=== PATIENT | male | born 1955 | race Caucasian/White ===

== ENCOUNTER 2018-10-20 03:58 | Emergency (ER) | payer OTHER ==
[2018-10-20] MEDS ORDERED: ASPIRIN 81 MG CHEW TAB PO ONE (04:06)
[2018-10-20] MEDS ORDERED: MAG HYDROX/ALUMINUM HYD/SIMETH 30 ML UDC PO ONE (04:07)
[2018-10-20] MEDS ORDERED: LIDOCAINE HCL 2% VISC. ORAL 300MG/15ML UDC PO ONE (04:07)
--- NOTE | 2018-10-20 04:10 | ED Physician Documentation ---
Chest Pain - HISTORIAN Historian: patient - HPI Stated Complaint: chest pain Chief Complaint: Chest Pain Additional Information: Patient, with a past medical history of CAD (s/p CABG 2014), PAD (s/p stents in both legs), DM2, smoking, and COPD/Empysema, presented to ED with a 36 hour history of epigastric pain/pressure. Patient state he had similar symptoms about 2 weeks ago and was seen by Dr. Becker. He was told it was indigestion and told to take over the counter Prilosec and Miralax. He took it for 7 days and stopped because that is what the directions on the box said. His symptoms returned yesterday, worsening overnight so he came to the ED. He states his belly feels bloated, causing pressure in his chest. He states this does not feel like any of the heart attacks he has had in the past. His last follow up with [facility] was July 2015. He has not been taking Lasix or Spironolactone. Current meds include Metoprolol and Lipitor. Onset: hours (36) Timing: gradual onset Duration: gradual Last known Well Date: 10/19/18 Last Known Well Time: 06:00 Context: sleep Severity: mild Quality: pressure (2/10) Chest Pain Radiation: no radiation Chest Pain Signs/Symptoms: denies: nausea, vomiting Worsened By: nothing Relieved By: sitting up - ROS CONST: none MS/LYMPH: none GI/: other (abdominal distention) EYES/ENT: none SKIN/ENDO: none NEURO/PSYCH: none - PAST HX MA risk factors: diabetes Type 2, cardiac disease DVT/PE Risk Factors: denies: leg swelling TAD/AAA risk factors: none Neuro deficit: none GI disease: none Lung disease: COPD Surgeries/Procedures: cardiac bypass, other (stents in both legs) Allergies/Adverse Reactions: Allergies Allergy/AdvReac Type Severity Reaction Status Date / Time No Known Drug Allergies Allergy Verified 10/20/18 04:39 Home Medications: Ambulatory Orders Medication Instructions Recorded Aspirin 162 mg PO DAILY u2 12/11/14 Metformin HCl [Glucophage] 1,000 mg PO HS u2 06/25/15 Atorvastatin Calcium [Lipitor] 80 mg PO HS u2 08/12/15 Furosemide [Lasix] 20 mg PO DAILY #30 tablet 10/20/18 Pantoprazole Sodium [Protonix] 40 mg PO DAILY #30 tablet. 10/20/18 Spironolactone 25 mg PO DAILY #30 tablet 10/20/18 - SOCIAL HX Smoking History: cigarettes, greater than 1 pack/day Alcohol Use: none Drug Use: none - FAMILY HX Family HX: none - REVIEWED ASSESSMENTS Nursing Assessment Reviewed: Yes Vitals Reviewed: Yes Progress - Progress Progress: 0409 CXR shows some heart failure will give Lasix 0502 Patient states his chest pressure has resolved after GI cocktail. He now complains of abdominal distention and constipation [address] results with patient. He would like to see Dr. Nielsen for following up. - EKG/XRAY/CT Comments: sinus ryythm with occasional PVCs. Inferior/Anterolateral infarct age unde ED Results Lab/Radiology - Radiology Radiology Impressions: Portable chest History: Chest pain and pressure Findings: Pulmonary vascular congestion, cardiomegaly, mild pulmonary edema, small left pleural effusion, and median sternotomy are observed. There is no pneumothorax. The lungs are well expanded. Impression: 1. Mild congestive heart failure. 2. Sternotomy. Electronically signed on Oct 20, 2018 4:22:23 AM [facility] by: Chucky Shah Computed tomography abdomen pelvis without contrast History: Abdominal pain and distention Findings: Transverse abdomen and pelvis sections are obtained without contrast. Priors have not been provided. An old nonunited right rib fracture, sternotomy, coronary artery calcification and/or stents, small bilateral pleural effusions, and mild bibasilar atelectasis or pulmonary edema are observed. Abdomen sections reveal massive retroperitoneal lymphadenopathy surrounding the inferior vena cava and abdominal aorta with extension into/along the root of the mesentery, pancreatic body and tail, adrenals, left kidney, and gastrosplenic ligament. This is contiguous with the stomach. Collateral mesenteric veins are present. The gallbladder is partially contracted. The spleen, liver, and right kidney are unremarkable. Extensive left perinephric stranding is observed. Bowel loops exhibit normal caliber and wall thickness. Fluid is present in the right rectus sheath. Right rectus muscle atrophy is present. Mesenteric and omental edema is observed. Atherosclerotic disease and a 3.5 cm infrarenal aortic aneurysm are observed. A small umbilical hernia contains omentum. Pelvic sections reveal unremarkable prostate, seminal vesicles, and urinary bladder. Pelvic bowel loops are within normal limits. The appendix is not identified. Atherosclerotic calcifications are observed. Impression: 1. Massive retroperitoneal lymphadenopathy as described. Differential includes lymphoproliferative disease and metastatic disease. 2. Sternotomy, atherosclerosis, small pleural effusions, small umbilical hernia, right rectus sheath fluid and rectus muscle atrophy, 3.5 cm infrarenal aortic aneurysm, and nonvisualization of the appendix. Electronically signed on Oct 20, 2018 5:52:26 AM [facility] by: Chucky Shah - Orders Orders: ED Orders Category Date Time Status Place IV Lock 1T Care 10/20/18 04:04 Ordered CHEST 1VIEW [RAD] Stat Exams 10/20/18 Ordered CBC/PLATELET/DIFF Routine Lab 10/20/18 Ordered CMP Routine Lab 10/20/18 Ordered LIPASE Stat Lab 10/20/18 Ordered TROPONIN I (cTnI) Stat Lab 10/20/18 Ordered Aspirin Med 10/20/18 04:06 Once 162 mg PO NOW ONE Lidocaine 2%Visc 15ml [Xylocaine] Med 10/20/18 04:07 Once 15 mg PO NOW ONE Mag Hydrox/Aluminum Hyd/Simeth [Mylanta] Med 10/20/18 04:07 Once 30 ml PO NOW ONE EKG WITH COMPARISON Stat Ther 10/20/18 Ordered Chest Pain Physical Exam - EXAM General Appearance: no acute distress, alert EENT: KEISHA Neck: No: lymphadenopathy Respiratory: no resp. distress, chest non-tender, other (markedly diminished breath sounds bilaterally) CVS: reg. rate & rhythm, no murmur Abdomen: increased BS, distended (firm, protuberent) Skin: warm/dry. No: diaphoresis Extremities: non-tender, edema (+1 lower extremity edema to knee bilaterally) Neuro: oriented X3, motor nml Discharge Clincal Impression: Mesenteric lymphadenopathy Heart failure Qualifiers: Heart failure type: combined systolic and diastolic Heart failure chronicity: chronic Qualified Code(s): I50.42 - Chronic combined systolic (congestive) and diastolic (congestive) heart failure Prescriptions: Furosemide [Lasix] 20 mg PO DAILY #30 tablet Pantoprazole Sodium [Protonix] 40 mg PO DAILY #30 tablet. Spironolactone 25 mg PO DAILY #30 tablet Referrals: William Rivas MD [Primary Care Provider] - 2 Days Comments: 1. Take Lasix and Spironolactone together to keep potassium level within normal range 2. Maintain a low sodium 2 g diet 3. Follow up with Cardiology 4. An Echocardiogram may be beneficial 5. Follow up with Dr. Rivas as soon as possible to further evaluate massive mesenteric lymphadenopathy as seen on CT scan 6. Keep colonscopy appointment next week. Condition: Stable Disposition: 01 HOME, SELF-CARE Decision to Admit: NO Date of Decison to Admit: 10/20/18 Decision Time: 06:23
[2018-10-20] MEDS ORDERED: SIMETHICONE 80 MG TAB.CHEW PO ONE (04:21)
[2018-10-20] MEDS ORDERED: PANTOPRAZOLE SODIUM 40 MG in 0.9 % SODIUM CHLORIDE 50 ML IV ONE (04:27)
[2018-10-20] MEDS ORDERED: FUROSEMIDE 40 MG/4 ML VIAL IVP ONE (04:30)
[2018-10-20 04:35] LABS: BASOPHILS % 0.4 (0.0-1.5); EOSINOPHILS % 7.2 % (0.0-6.8); MEAN CORPUSCULAR HEMOGLOBIN 27.7 pg (28.0-34.0); MONOCYTES % 5.4 % (0.0-11.0); NEUTROPHILS # 6.2 # k/uL (1.4-7.7)
[2018-10-20 04:59] LABS: eGFR (Non-African) > 60
--- NOTE | 2018-10-20 05:02 | Diagnostic Imaging Report ---
REUBEN PATTERSON [facility] [address] [facility] [address] [place] [address]. [id number] Report Submission Date: Oct 20, 2018 4:22:23 AM STOREROOM SUPERVISOR Patient Study Name: ARLETTE FREDERICK Date: Oct 20, 2018 4:01:10 AM STOREROOM SUPERVISOR Modality Type: DX Gender: M Description: CHEST : 59 Institution: [facility] Physician: REUBEN PATTERSON Portable chest History: Chest pain and pressure Findings: Pulmonary vascular congestion, cardiomegaly, mild pulmonary edema, small left pleural effusion, and median sternotomy are observed. There is no pneumothorax. The lungs are well expanded. Impression: 1. Mild congestive heart failure. 2. Sternotomy. Electronically signed on Oct 20, 2018 4:22:23 AM STOR[employer] SUPERVISOR by: Chucky HAYNES
[2018-10-20 06:19] VITALS: BP 154/77
--- NOTE | 2018-10-20 14:41 | Diagnostic Imaging Report ---
FEDERICA PATTERSON [facility] [address] [facility] [address] [place], [place]. [address] Report Submission Date: Oct 20, 2018 5:52:26 AM ASSISTANT TEACHER PRIMARY Patient Study Name: ARLETTE FREDERICK Date: Oct 20, 2018 5:21:54 AM ASSISTANT TEACHER PRIMARY Modality Type: CT\SR Gender: M Description: CT ABD PELVIS W/O CO : 59 Institution: [facility] Physician: REUBEN PATTERSON Computed tomography abdomen pelvis without contrast History: Abdominal pain and distention Findings: Transverse abdomen and pelvis sections are obtained without contrast. Priors have not been provided. An old nonunited right rib fracture, sternotomy, coronary artery calcification and/or stents, small bilateral pleural effusions, and mild bibasilar atelectasis or pulmonary edema are observed. Abdomen sections reveal massive retroperitoneal lymphadenopathy surrounding the inferior vena cava and abdominal aorta with extension into/along the root of the mesentery, pancreatic body and tail, adrenals, left kidney, and gastrosplenic ligament. This is contiguous with the stomach. Collateral mesenteric veins are present. The gallbladder is partially contracted. The spleen, liver, and right kidney are unremarkable. Extensive left perinephric stranding is observed. Bowel loops exhibit normal caliber and wall thickness. Fluid is present in the right rectus sheath. Right rectus muscle atrophy is present. Mesenteric and omental edema is observed. Atherosclerotic disease and a 3.5 cm infrarenal aortic aneurysm are observed. A small umbilical hernia contains omentum. Pelvic sections reveal unremarkable prostate, seminal vesicles, and urinary bladder. Pelvic bowel loops are within normal limits. The appendix is not identified. Atherosclerotic calcifications are observed. Impression: 1. Massive retroperitoneal lymphadenopathy as described. Differential includes lymphoproliferative disease and metastatic disease. 2. Sternotomy, atherosclerosis, small pleural effusions, small umbilical hernia, right rectus sheath fluid and rectus muscle atrophy, 3.5 cm infrarenal aortic aneurysm, and nonvisualization of the appendix. Electronically signed on Oct 20, 2018 5:52:26 AM [employer] by: Chucky HAYNES
== END 2018-10-20 06:35 | disposition home or self-care (01) ==
LOC: ED 03:58
DX: I50.42 Chronic combined systolic (congestive) and diastolic (congestive) heart failure (principal); R59.1 Generalized enlarged lymph nodes; J44.9 Chronic obstructive pulmonary disease, unspecified; I73.9 Peripheral vascular disease, unspecified; I25.10 Atherosclerotic heart disease of native coronary artery without angina pectoris; E11.9 Type 2 diabetes mellitus without complications; F17.210 Nicotine dependence, cigarettes, uncomplicated; Z95.1 Presence of aortocoronary bypass graft
CPT/HCPCS: 71045; 74176; 80053; 83690; 83880; 84484; 85025; 93005; 96374; 99284; A9270; J1940; S1016

== ENCOUNTER 2018-10-25 08:53 | Outpatient (CLI) | payer OTHER ==
--- NOTE | 2018-10-25 09:40 | Diagnostic Imaging Report ---
REUBEN PATTERSON [facility] [address] [facility] [address] [place] [address]. [id number] Report Submission Date: Oct 25, 2018 8:49:51 AM EMERGENCY SERVICES DIRECTOR Patient Study Name: WILLY ARCHER Date: Oct 25, 2018 8:29:42 AM EMERGENCY SERVICES DIRECTOR Modality Type: DX Gender: F Description: CHEST : [birth year] Institution: [facility] Physician: REUBEN PATTERSON Portable chest History: Hip fracture. Preop. Portable chest dated October 25, 2018 demonstrates normal heart size. There is mild aortic atherosclerosis. Pulmonary vascularity is normal. Lungs are clear. Impression: No active disease. Electronically signed on Oct 25, 2018 8:49:51 AM EMERGENCY SERVICES DIRECTOR by: Sofiya HAYNES
== END 2018-10-25 08:55 ==
LOC: RAD 08:53
PROVIDERS: ATTEND Family Medicine
DX: R59.0 Localized enlarged lymph nodes (principal)
CPT/HCPCS: 71260; Q9967

== ENCOUNTER 2018-10-31 08:22 | Day surgery (SDC) | payer OTHER ==
[2018-10-31] MEDS ORDERED: PROPOFOL 200 MG/20 ML VIAL IV ONE (08:48)
[2018-10-31] MEDS ORDERED: LACTATED RINGERS 1,000 ML IV.SOLN IV ONE (08:48)
--- NOTE | 2018-11-07 16:34 | GI Report ---
REFERRING PHYSICIAN: William Rivas MD INFORMATION BROKER: Ibrahima Peraza MD PROCEDURE MEDICATION: Propofol as per anesthesia and we did him at a 35-degree angle with his chest above his abdomen. INDICATIONS: This is a 62-year-old man with multiple medical issues. He has had a coronary bypass in the past. He had problems with infection and had to have some plastic surgery done. He has COPD. He has been a cigarette smoker for 45 years and still smokes a pack a day. 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 He has asked for an evaluation of the colon to see if there is involvement. He is an extremely high risk patient. On exam, he has decreased breath sounds. He has scattered rhonchi and wheezes. His abdomen has a surgical scar. The abdomen is protuberant. Not much muscle tone. No obvious tenderness to palpation. Heart sounds are distant. PROCEDURE PERFORMED: Colonoscopy and polypectomy. PROCEDURE: An Olympus video colonoscope was advanced to the rectum and slowly advanced all the way to the cecum. The appendiceal orifice and terminal ileum looked normal. On slow withdrawal, at 90 cm in the mid-transverse colon, the patient had a 3 mm flat polyp removed with a cold snare. The descending colon and sigmoid had some redundancy but no obvious intraluminal lesions were noted. Retroflexion of the rectum showed some hemorrhoids. Patient tolerated the procedure well actually with light sedation. He had no coughing episodes during the procedure. FINDINGS: 1. A polyp removed from the transverse colon. 2. An atonic redundant colon. 3. Underlying chronic obstructive pulmonary disease (COPD). 4. Previous coronary artery bypass graft (CABG). 5. Apparent diagnosis of gastric lymphoma. RECOMMENDATIONS: 1. A high-fiber diet. 2. It is imperative that he needs to discontinue tobacco usage. 3. Pending pathology of the polyp, would have his colon re-looked at again in 5 years. cc: Dr. William HAYNES
== END 2018-10-31 08:24 ==
LOC: OPSURG 08:22
PROVIDERS: ATTEND Internal Medicine Gastroenterology
DX: K63.5 Polyp of colon (principal); R19.4 Change in bowel habit; J44.9 Chronic obstructive pulmonary disease, unspecified; F17.210 Nicotine dependence, cigarettes, uncomplicated; Z95.1 Presence of aortocoronary bypass graft
CPT/HCPCS: 45385; J2704; J7120; S1016